=== PATIENT | female | born 1970 | race Caucasian/White ===

== ENCOUNTER → 2016-12-29 | Outpatient (CLI) | payer OTHER ==
[~2016-12-29] MED LIST: ACET-2321 PO; ASPI-1115 PO; CALC-586 PO; IBUP200C62 PO; KETO10TA2 PO; LACT1CAP73 PO; MULT-806 PO; OXYC-544 PO; POLY17PO6 PO
[2016-12-29 09:32] LABS: BASOPHILS % (AUTO) 0.4 % (0-2); EOSINOPHILS # (AUTO) 0.1 T/MM3 (0-0.5); EOSINOPHILS % (AUTO) 1.4 % (0-4); HCT - HEMATOCRIT 42.5 % (36-46); HGB - HEMOGLOBIN 13.9 GM/DL (12-16); LYMPHOCYTES # (AUTO) 2.1 T/MM3 (1-4.8); LYMPHOCYTES % (AUTO) 29.9 % (23-45); MEAN CORPUSCULAR HGB 27.1 UUG (26-34); MEAN CORPUSCULAR HGB CONC(MCHC 32.7 GM/DL (31-37); MEAN PLATELET VOLUME 10.8 UM3 (9.4-12.4); MONOCYTES # (AUTO) 0.5 T/MM3 (0-0.8); MONOCYTES % (AUTO) 6.5 % (0-9.0); NEUTROPHILS #(AUTO)-ABSOLUTE 4.3 T/MM3 (1.8-7.7); NEUTROPHILS % (AUTO) 61.8 % (33-66); RED BLOOD COUNT 5.12 M/MM3 (4.00-5.20); WBC - WHITE BLOOD COUNT 6.9 T/MM3 (4.5-11.0)
[2016-12-29 09:34] LABS: BLOOD, URINE 3+ (NEGATIVE); COLOR,URINE YELLOW (YELLOW); LEUKOCYTE ESTERASE ,URINE NEGATIVE (NEGATIVE); NITRITE,URINE NEGATIVE (NEGATIVE); UROBILINOGEN,URINE 0.2 EU/DL (NORMAL)
[2016-12-29 09:40] LABS: BACTERIA,URINE NONE SEEN (NEGATIVE); WBC,URINE 0-1 /HPF (0-5)
[2016-12-29 09:41] LABS: ALBUMIN 4.4 G/DL (3.5-5.0); ALBUMIN/GLOBULIN RATIO 1.4 RATIO (1.1-2.2); ALKALINE PHOSPHATASE 83 U/L (38-126); ALT (SGPT) 39 U/L (9-52); ANION GAP 12 MEQ/L (5-15); AST (SGOT) 28 U/L (14-36); BUN/CREATININE RATIO 18 RATIO (6-26); C-REACTIVE PROTEIN < 5.0 MG/L (0-9); CALCIUM 9.1 MG/DL (8.4-10.2); CHLORIDE 105 MEQ/L (98-107); CO2 - CARBON DIOXIDE 28 MEQ/L (22-30); CREATININE 0.9 MG/DL (0.7-1.2); GLOMERULAR FILTRATION RATE 67; GLUCOSE 117 MG/DL (65-110); SODIUM 145 MEQ/L (134-144); TOTAL PROTEIN 7.6 G/DL (6.3-8.2)
[2016-12-29 10:09] LABS: THYROID STIM HORMONE-TSH 1.91 MIU/L (0.47-4.68)
== END ==
LOC: LAB 09:17
PROVIDERS: ATTEND Internal Medicine
DX: Z87.442 Personal history of urinary calculi (principal); R31.9 Hematuria, unspecified; R10.2 Pelvic and perineal pain; M25.50 Pain in unspecified joint
CPT/HCPCS: 36415; 80053; 81001; 84443; 85025; 85652; 86140

== ENCOUNTER → 2017-01-01 | Outpatient (CLI) | payer OTHER ==
--- NOTE | 2017-01-01 16:05 | DI ---
Indication: ITS.REASON: Z87.442 Personal history of urinary calculi PROCEDURE: CT RENAL W/O CONTRAST: Encounter: Initial Comparison: Renal CT dated November 03, 2012 Technique: Axial CT images were performed through the abdomen and pelvis without intravenous contrast. Coronal and sagittal two-dimensional reformats. Automated Exposure Control and Iterative Reconstruction dose reducing techniques were utilized. Findings: The lung bases are clear. The unenhanced contours of the liver are unremarkable. The gallbladder, spleen, pancreas and adrenal glands are within normal limits. Right kidney appears normal. No right-sided renal or ureteral stones. Left kidney shows areas of cortical loss and scarring. Cortical calcification in the upper pole, probably not within the collecting system and additional 2 mm upper pole renal stone on axial thin slice image #66. This is stable from the comparison exam. There are also stones in the lower pole measuring up to 10 mm in total diameter on coronal image #84. There appears to be at least three adjacent stones present here. The overall stone burden is similar to the comparison exam. No ureteral stone. The bladder is normal. Uterus is within normal limits. Prominent cyst or follicle seen in the right ovary measuring up to 2.7 cm in diameter. No free fluid. Mild sigmoid diverticulosis without evidence of acute diverticulitis. No evidence of a bowel obstruction. The appendix is normal. Bone windows show no acute findings. Impression: Overall stable left nephrolithiasis. No obstructing renal or ureteral stones. .
== END ==
LOC: IMA 14:56
PROVIDERS: ATTEND Physician Assistant
DX: N20.0 Calculus of kidney (principal); Z87.442 Personal history of urinary calculi